=== PATIENT | female | born 1990 | race American Indian/Alaskan Native ===

== ENCOUNTER 2019-01-03 17:47 | Emergency (ER) | payer MEDICAID ==
[2019-01-03 17:52] VITALS: BP 149/96
--- NOTE | 2019-01-03 18:47 | Emergency Department Report ---
Chief Complaint: Urogenital-Female Stated Complaint: BODYACHES/PAINFUL URINE - HPI History of Present Illness: 28yo BF states that she has back pain, body aches and burning wit urination. - Exam Vital Signs: Vital Signs 01/03/19 17:51 Temperature 98.6 F Pulse Rate 100 H Respiratory 18 Rate Blood Pressure 149/96 O2 Sat by Pulse 94 Oximetry MSE screening note: Focused history and physical exam performed. Due to findings the following was ordered: ED Disposition for MSE Condition: Stable
[2019-01-03 19:28] LABS: Bilirubin,Urine NEG (Negative); Blood,Urine MOD (Negative); Color,Urine Yellow (Yellow); Mucus,Urine FEW /HPF; Protein,Urine <15 mg/dL mg/dL (Negative); Urobilinogen,Urine < 2.0 mg/dL (<2.0)
== END 2019-01-03 19:00 | disposition left against medical advice (07) ==
LOC: ED 17:47
DX: R30.0 Dysuria (principal); Z53.21 Procedure and treatment not carried out due to patient leaving prior to being seen by health care provider
CPT/HCPCS: 81001